=== PATIENT | female | born 1985 | race African-American/Black ===

== ENCOUNTER 2017-03-07 12:24 | Emergency (ER) | payer BC ==
[2017-03-07] MEDS ORDERED: ONDANSETRON 4 MG TAB.RAPDIS PO ONE (13:58)
[2017-03-07] MEDS ORDERED: ACETAMINOPHEN 325 MG TABLET PO ONE (13:58)
--- NOTE | 2017-03-07 14:00 | ER Document Report ---
ED Medical Screen (RME) - General Chief Complaint: Nausea/Vomiting/Diarrhea Stated Complaint: NAUSEA Time Seen by Provider: 03/07/17 13:57 Mode of Arrival: Ambulatory Information source: Patient Notes: 31-year-old female presents to ED for complaint of nausea vomiting diarrhea and abdominal pain. She states she last Friday she had nausea yesterday she started with vomiting and diarrhea and today she started with a migraine. She denies any fever. She denies any vaginal discharge or frequency urgency with urine. Last menstrual period was March 03. She states she has a history of asthma allergies migraines and sickle cell anemia. States her usual sickle cell pain is in her legs and joints. She states she has a history of a C- section and denies smoking drinking or any drugs. Abdomen soft tender in the upper abdomen bowel sounds active and present. I have greeted and performed a rapid initial assessment of this patient. A comprehensive ED assessment and evaluation of the patient, analysis of test results and completion of medical decision making process will be conducted by an additional ED providers. TRAVEL OUTSIDE OF THE [place] IN LAST 30 DAYS: No - Related Data Allergies/Adverse Reactions: codeine [Codeine] Allergy (Severe, Verified 03/07/17 13:06) Milk Containing Products [Milk Products] Allergy (Severe, Verified 03/07/17 13: 06) latex [Latex] Adverse Reaction (Severe, Verified 03/07/17 13:06) Past Medical History - Social History Chew tobacco use (# tins/day): No Frequency of alcohol use: None Drug Abuse: None - Past Medical History Cardiac Medical History: Reports: Hx Hypertension - DURING Denies: Hx Congestive Heart Failure, Hx Heart Attack, Hx Pulmonary Embolism, Hx Heart Murmur Pulmonary Medical History: Reports: Hx Asthma, Hx Bronchitis, Hx Pneumonia Denies: Hx COPD, Hx Sleep Apnea, Hx Tuberculosis Neurological Medical History: Denies: Hx Cerebrovascular Accident, Hx Seizures Renal/ Medical History: Reports: Hx Ovarian Cysts. Denies: Hx Kidney Stones, Hx Peritoneal Dialysis, Hx Pelvic Inflammatory Disease Malignancy Medical History: Denies: Hx Breast Cancer, Hx Ovarian Cancer GI Medical History: Reports: Hx Gastroesophageal Reflux Disease. Denies: Hx Hiatal Hernia. Comment Only: Hx Ulcer - UNKNOWN Musculoskeltal Medical History: Denies Hx Fibromyalgia Traumatic Medical History: Denies: Hx Fractures Infectious Medical History: Denies: Hx HIV Past Surgical History: Reports: Hx Section - x4 - Immunizations Immunizations up to date: Yes Hx Diphtheria, Pertussis, Tetanus Vaccination: Yes - 07/2012 History of Influenza Vaccine for 02/2017 - 07/2017 Season: No Physical Exam - Vital signs Vitals: Temp Pulse Resp BP Pulse Ox 98.8 F 91 18 116/67 100 03/07/17 13:09 03/07/17 13:09 03/07/17 13:09 03/07/17 13:09 03/07/17 13:09 Course - Vital Signs Vital signs: Temp Pulse Resp BP Pulse Ox 98.8 F 91 18 116/67 100 03/07/17 13:09 03/07/17 13:09 03/07/17 13:09 03/07/17 13:09 03/07/17 13:09
[2017-03-07 14:31] LABS: ABSOLUTE EOSINOPHILS # (AUTO) 0.1 10^3/uL (0.0-0.6); ABSOLUTE LYMPHOCYTES (AUTO) 2.1 10^3/uL (0.5-4.7); ABSOLUTE MONOCYTES (AUTO) 0.4 10^3/uL (0.1-1.4); ABSOLUTE NEUT (AUTO) 2.4 10^3/uL (1.7-8.2); BASOPHILS % (AUTO) 0.4 % (0-2); EOSINOPHILS % (AUTO) 1.5 % (0-6); HEMATOCRIT 34.7 % (36.0-47.0); HEMOGLOBIN 11.5 g/dL (12.0-15.5); HGB HCT DIFFERENCE -0.2; LYMPHOCYTES % (AUTO) 41.2 % (13-45); MEAN CORPUSCULAR HEMOGLOBIN 27.6 pg (27.0-33.4); MEAN CORPUSCULAR HGB CONC 33.1 g/dL (32.0-36.0); MEAN CORPUSCULAR VOLUME 83 fl (80-97); MONOCYTES % (AUTO) 8.8 % (3-13); RED BLOOD COUNT 4.17 10^6/uL (3.72-5.28); RED CELL DISTRIBUTION WIDTH 15.4 % (11.5-14.0); SEGMENTED NEUTROPHILS % (AUTO) 48.1 % (42-78)
[2017-03-07 14:34] LABS: APPEARANCE,URINE SLIGHTLY-CLOUDY; BILIRUBIN,URINE NEGATIVE (NEGATIVE); GLUCOSE, URINE NEGATIVE (NEGATIVE); KETONES,URINE NEGATIVE (NEGATIVE); LEUKOCYTE ESTERASE,URINE NEGATIVE (NEGATIVE); NITRITE,URINE NEGATIVE (NEGATIVE); PROTEIN,URINE NEGATIVE (NEGATIVE); URINE SPECIFIC GRAVITY 1.024; UROBILINOGEN,URINE NEGATIVE mg/dL (<2.0)
[2017-03-07 14:41] LABS: ALANINE AMINOTRANSFERASE 30 U/L (9-52); ALBUMIN 4.4 g/dL (3.5-5.0); ALKALINE PHOSPHATASE 66 U/L (38-126); ANION GAP 14 (5-19); ASPARTATE AMINO TRANSFERASE 20 U/L (14-36); BILIRUBIN,DIRECT 0.3 mg/dL (0.0-0.4); BILIRUBIN,TOTAL 0.5 mg/dL (0.2-1.3); BLOOD UREA NITROGEN 8 mg/dL (7-20); CALCIUM 9.6 mg/dL (8.4-10.2); CARBON DIOXIDE 24 mmol/L (22-30); CHLORIDE 105 mmol/L (98-107); CREATININE RESULT 0.54 mg/dL (0.52-1.25); GLUCOSE 91 mg/dL (75-110); LIPASE 78.2 U/L (23-300); POTASSIUM 3.9 mmol/L (3.6-5.0); TOTAL PROTEIN 7.8 g/dL (6.3-8.2)
--- NOTE | 2017-03-07 15:03 | RADIOLOGY REPORT (SQ) ---
EXAM DESCRIPTION: U/S ABDOMEN LIMITED W/O DOP COMPLETED DATE/TIME: 03/07/2017 2:42 pm REASON FOR STUDY: upper abdominal pain. COMPARISON: Abdominal ultrasound 05/05/2009 KUB 12/22/2009 TECHNIQUE: Dynamic and static grayscale images acquired of the abdomen and recorded on PACS. Additio nal selected color Doppler and spectral images recorded. LIMITATIONS: Upper abdominal bowel gas FINDINGS: PANCREAS: Midline pancreas unremarkable LIVER: No masses. Echotexture normal. LIVER VASCULATURE: Normal directional flow of the main portal vein and hepatic veins. GALLBLADDER: No stones. Normal wall thickness. No pericholecystic fluid. ULTRASOUND-DETECTED MALDONADO'S SIGN: Negative. INTRAHEPATIC DUCTS AND COMMON DUCT: CBD and intrahepatic ducts normal caliber. No filling defects. D istal most common duct not well seen due to duodenum gas INFERIOR VENA CAVA: Normal flow. AORTA: No aneurysm. RIGHT KIDNEY: Normal size. Normal echogenicity. No solid or suspicious masses. No hydronephrosis. No calcifications. PERITONEAL AND RIGHT PLEURAL SPACE: No ascites or effusions. OTHER: No other significant findings. IMPRESSION: NORMAL RIGHT UPPER QUADRANT ULTRASOUND. TECHNICAL DOCUMENTATION: JOB ID: [id number] [employer]- All Rights Reserved
[2017-03-07 17:38] VITALS: BP 128/75
--- NOTE | 2017-03-07 17:44 | ER Document Report ---
ED GI/ - General Chief Complaint: Nausea/Vomiting/Diarrhea Stated Complaint: NAUSEA Time Seen by Provider: 03/07/17 13:57 Mode of Arrival: Ambulatory TRAVEL OUTSIDE OF THE [place] IN LAST 30 DAYS: No - HPI Patient complains to provider of: Abdominal pain, Diarrhea, Vomiting Onset: Yesterday Timing/Duration: Gradual Quality of pain: Achy Severity at maximum: Mild Severity in ED: Mild Location: Epigastric Associated symptoms: Nausea, Vomiting Exacerbated by: Food Relieved by: Denies Notes: 03/07/17 22:56 Patient is a 31-year-old female presenting to the emergency room complaining of nausea vomiting and diarrhea with epigastric cramping that started yesterday, she reports mild nausea sometime last week at the start of her menstrual cycle, she denies any urinary symptoms, no sick contacts although [place] in [place] [employer] [place] she received Zofran and Tylenol in the triage area and reports feeling much better - Related Data Allergies/Adverse Reactions: codeine [Codeine] Allergy (Severe, Verified 03/07/17 13:06) Milk Containing Products [Milk Products] Allergy (Severe, Verified 03/07/17 13: 06) latex [Latex] Adverse Reaction (Severe, Verified 03/07/17 13:06) Past Medical History - General Information source: Patient - Social History Smoking Status: Never Smoker Chew tobacco use (# tins/day): No Frequency of alcohol use: None Drug Abuse: None Family History: Reviewed & Not Pertinent Patient has suicidal ideation: No Patient has homicidal ideation: No - Past Medical History Cardiac Medical History: Reports: Hx Hypertension - DURING Denies: Hx Congestive Heart Failure, Hx Heart Attack, Hx Pulmonary Embolism, Hx Heart Murmur Pulmonary Medical History: Reports: Hx Asthma, Hx Bronchitis, Hx Pneumonia Denies: Hx COPD, Hx Sleep Apnea, Hx Tuberculosis Neurological Medical History: Denies: Hx Cerebrovascular Accident, Hx Seizures Renal/ Medical History: Reports: Hx Ovarian Cysts. Denies: Hx Kidney Stones, Hx Peritoneal Dialysis, Hx Pelvic Inflammatory Disease Malignancy Medical History: Denies: Hx Breast Cancer, Hx Ovarian Cancer GI Medical History: Reports: Hx Gastroesophageal Reflux Disease. Denies: Hx Hiatal Hernia. Comment Only: Hx Ulcer - UNKNOWN Musculoskeltal Medical History: Denies Hx Fibromyalgia Traumatic Medical History: Denies: Hx Fractures Infectious Medical History: Denies: Hx HIV Past Surgical History: Reports: Hx Section - x4 - Immunizations Immunizations up to date: Yes Hx Diphtheria, Pertussis, Tetanus Vaccination: Yes - 07/2012 Review of Systems - Review of Systems Constitutional: No symptoms reported EENT: No symptoms reported Cardiovascular: No symptoms reported Respiratory: No symptoms reported Gastrointestinal: See HPI Genitourinary: No symptoms reported Female Genitourinary: No symptoms reported Musculoskeletal: No symptoms reported Skin: No symptoms reported Hematologic/Lymphatic: No symptoms reported Neurological/Psychological: No symptoms reported -: Yes All other systems reviewed and negative Physical Exam - Vital signs Vitals: Temp Pulse Resp BP Pulse Ox 98.8 F 91 18 116/67 100 03/07/17 13:09 03/07/17 13:09 03/07/17 13:09 03/07/17 13:09 03/07/17 13:09 Interpretation: Normal - General General appearance: Appears well, Alert - HEENT Head: Normocephalic, Atraumatic Eyes: Normal Pupils: PERRL - Respiratory Respiratory status: No respiratory distress Chest status: Nontender Breath sounds: Normal Chest palpation: Normal - Cardiovascular Rhythm: Regular Heart sounds: Normal auscultation Murmur: No - Abdominal Inspection: Normal, Obese Distension: No distension Bowel sounds: Normal Tenderness: Nontender Organomegaly: No organomegaly - Back Back: Normal, Nontender - Extremities General upper extremity: Normal inspection, Nontender, Normal color, Normal ROM , Normal temperature General lower extremity: Normal inspection, Nontender, Normal color, Normal ROM , Normal temperature, Normal weight bearing. No: Eleazar's sign - Neurological Neuro grossly intact: Yes Cognition: Normal Orientation: AAOx4 [place] Coma Scale Eye Opening: Spontaneous [place] Coma Scale Verbal: Oriented Hemant Coma Scale Motor: Obeys Commands Hemant Coma Scale Total: 15 Speech: Normal Motor strength normal: LUE, RUE, LLE, RLE Sensory: Normal - Psychological Associated symptoms: Normal affect, Normal mood - Skin Skin Temperature: Warm Skin Moisture: Dry Skin Color: Normal Course - Re-evaluation Re-evalutation: 03/07/17 22:58 Patient reports feeling much better at time of my initial evaluation, lab and imaging findings were discussed with her at bedside which are unremarkable, symptoms consistent with viral illness, she was able to tolerate p.o. intake in the department and was discharged with instructions for follow-up, advised to return if any additional concerns, patient acknowledges understanding and agreement with this plan - Vital Signs Vital signs: Temp Pulse Resp BP Pulse Ox 98.0 F 75 20 128/75 H 99 03/07/17 17:34 03/07/17 17:34 03/07/17 17:34 03/07/17 17:34 03/07/17 17:34 - Laboratory Result Diagrams: 03/07/17 14:13 03/07/17 14:13 Laboratory results interpreted by me: 03/07/17 03/07/17 14:13 14:13 Hgb 11.5 L Hct 34.7 L RDW 15.4 H Urine Blood LARGE H Discharge - Discharge Clinical Impression: Nausea vomiting and diarrhea Condition: Stable Disposition: HOME, SELF-CARE Instructions: Antinausea Medication ([facility]), Diarrhea, Nonspecific ([facility]), Viral Syndrome ([facility]), Vomiting ([facility]) Additional Instructions: Follow up with your primary care provider in one to 2 days. Return to the emergency room immediately if symptoms worsen or any additional concerns. Prescriptions: Ondansetron [Zofran Odt 4 mg Tablet] 1 - 2 tab PO Q4H #14 tab.rapdis Forms: Return to Work
== END 2017-03-07 18:04 | disposition home or self-care (01) ==
LOC: ER 12:24
DX: R11.2 Nausea with vomiting, unspecified (principal); R19.7 Diarrhea, unspecified; R10.9 Unspecified abdominal pain; E66.9 Obesity, unspecified; Z88.6 Allergy status to analgesic agent; Z91.040 Latex allergy status; Z91.011 Allergy to milk products
CPT/HCPCS: 99284; 36415; 83690; 84703; 85025; 80053; 81001; 76705; S0119

== ENCOUNTER 2017-05-25 18:44 | Emergency (ER) | payer BC ==
[2017-05-25] MEDS ORDERED: NORMAL SALINE 1000 ML 1,000 ML IV ONE (20:06)
[2017-05-25] MEDS ORDERED: DEXAMETHASONE SOD PHOS INJ 10 MG/1 ML VIAL IV ONE (20:06)
[2017-05-25] MEDS ORDERED: MORPHINE SULFATE 10 MG/ML INJ IV ONE (20:06)
[2017-05-25] MEDS ORDERED: CLINDAMYCIN 600 MG/D5W RTU 600 MG/50 ML RTUPB IV ONE (20:06)
[2017-05-25] MEDS ORDERED: KETOROLAC TROMETHAMINE INJ/PF 30 MG/1 ML SDV IV ONE (20:07)
--- NOTE | 2017-05-25 20:08 | ER Document Report ---
ED ENT - General Chief Complaint: Sore Throat Stated Complaint: SORE THROAT Time Seen by Provider: 05/25/17 19:53 Mode of Arrival: Ambulatory Information source: Patient Notes: Patient presents complaining of sore throat symptoms for the past 3 days. Patient denies any fever at home. Patient complains of difficulty swallowing at home. Patient states she has difficulty breathing if she lies supine. Patient is sitting upright for comfort. TRAVEL OUTSIDE OF THE [place] IN LAST 30 DAYS: No - HPI Patient complains to provider of: Throat problem Onset: Other - 3 days Onset/Duration: Worse Pain Level: 4 Location of pain: Throat Associated symptoms: Cough, Difficulty swallowing, Sore throat. denies: Fever Similar symptoms previously: No Recently seen / treated by doctor: No - Related Data Allergies/Adverse Reactions: codeine [Codeine] Allergy (Severe, Verified 05/25/17 18:45) Milk Containing Products [Milk Products] Allergy (Severe, Verified 05/25/17 18: 45) latex [Latex] Adverse Reaction (Severe, Verified 05/25/17 18:45) Past Medical History - General Information source: Patient - Social History Smoking Status: Never Smoker Frequency of alcohol use: None Drug Abuse: None Occupation: food beverage manager Family History: Reviewed & Not Pertinent - Medical History Medical History: Other - sickle cell disease - Past Medical History Cardiac Medical History: Reports: Hx Hypertension - DURING Denies: Hx Congestive Heart Failure, Hx Heart Attack, Hx Pulmonary Embolism, Hx Heart Murmur Pulmonary Medical History: Reports: Hx Asthma, Hx Bronchitis, Hx Pneumonia Denies: Hx COPD, Hx Sleep Apnea, Hx Tuberculosis Neurological Medical History: Denies: Hx Cerebrovascular Accident, Hx Seizures Renal/ Medical History: Reports: Hx Ovarian Cysts. Denies: Hx Kidney Stones, Hx Peritoneal Dialysis, Hx Pelvic Inflammatory Disease Malignancy Medical History: Denies: Hx Breast Cancer, Hx Ovarian Cancer GI Medical History: Reports: Hx Gastroesophageal Reflux Disease. Denies: Hx Hiatal Hernia. Comment Only: Hx Ulcer - UNKNOWN Musculoskeltal Medical History: Denies Hx Fibromyalgia Traumatic Medical History: Denies: Hx Fractures Infectious Medical History: Denies: Hx HIV Past Surgical History: Reports: Hx Section - x4 - Immunizations Immunizations up to date: Yes Hx Diphtheria, Pertussis, Tetanus Vaccination: Yes - 07/2012 Review of Systems - Review of Systems Constitutional: No symptoms reported. denies: Fever EENT: Throat pain, Difficulty swallowing, Throat swelling Cardiovascular: No symptoms reported Respiratory: Cough. denies: Short of breath Gastrointestinal: No symptoms reported. denies: Vomiting Genitourinary: No symptoms reported Female Genitourinary: No symptoms reported Musculoskeletal: No symptoms reported Skin: No symptoms reported Hematologic/Lymphatic: No symptoms reported Neurological/Psychological: No symptoms reported Physical Exam - Vital signs Vitals: Temp Pulse Resp BP Pulse Ox 99.8 F 110 H 20 140/65 H 100 05/25/17 19:08 05/25/17 19:08 05/25/17 19:08 05/25/17 19:08 05/25/17 19:08 - General General appearance: Alert In distress: Mild - HEENT Head: Normocephalic Eyes: Normal Ears: Normal External canal: Normal Nasal: Normal Mouth/Lips: Normal Mucous membranes: Normal Pharynx: Erythema, Peritonsillar abscess - right, Tonsillar hypertrophy Neck: Lymphadenopathy - Respiratory Respiratory status: No respiratory distress Chest status: Nontender Breath sounds: Nonproductive cough Chest palpation: Normal - Cardiovascular Rhythm: Tachycardia Heart sounds: S1 appreciated, S2 appreciated Murmur: No - Back Back: Normal, Nontender - Extremities General upper extremity: Normal inspection, Normal ROM General lower extremity: Normal inspection, Normal ROM - Neurological Neuro grossly intact: Yes Cognition: Normal Hemant Coma Scale Eye Opening: Spontaneous Hemant Coma Scale Verbal: Oriented Hemant Coma Scale Motor: Obeys Commands [place] Coma Scale Total: 15 - Psychological Associated symptoms: Normal affect, Normal mood - Skin Skin Temperature: Warm Skin Moisture: Dry Skin Color: Normal Course - Re-evaluation Re-evalutation: 05/25/17 21:04 Dr. Yip to bedside for examination. Recommend CT scan of neck as well as giving 60 mEq of potassium p.o. 05/25/17 22:55 CT report reviewed, consultation placed with transfer center 05/25/17 23:[address] Taylor, who is on-call for ENT at [facility]. Recommends transfer to hospitalist services with ENT consultation. 05/25/17 23:[address] Park at [facility] who does agree to accept patient as a transfer. 05/26/17 23:45 Patient updated regarding plan of care and is agreeable to transfer. Patient awaiting available bed 05/26/17 01:26 Patient resting on stretcher sitting upright. Ice chips provided to patient. Patient denies any pain at this time. Respirations unlabored. No trismus on exam. Patient continues with right peritonsillar swelling and inflammation. Report and handout given to [facility]. - Vital Signs Vital signs: Temp Pulse Resp BP Pulse Ox 98.6 F 104 H 20 136/85 H 99 05/25/17 23:01 05/25/17 23:10 05/25/17 19:08 05/25/17 23:01 05/25/17 23:01 - Laboratory Result Diagrams: 05/25/17 20:23 05/25/17 20:23 Laboratory results interpreted by me: 05/25/17 05/25/17 20:23 20:23 WBC 11.6 H Hgb 11.4 L Hct 34.4 L RDW 14.4 H Absolute Neutrophils 8.5 H Potassium 2.8 L* Carbon Dioxide 31 H BUN 6 L Labs- Entire Visit 05/25/17 05/25/17 05/25/17 20:23 20:23 20:23 WBC 11.6 H RBC 4.15 Hgb 11.4 L Hct 34.4 L MCV 83 MCH 27.6 MCHC 33.2 RDW 14.4 H Plt Count 244 Seg Neutrophils % 73.6 Lymphocytes % 15.9 Monocytes % 9.2 Eosinophils % 1.0 Basophils % 0.3 Absolute Neutrophils 8.5 H Absolute Lymphocytes 1.8 Absolute Monocytes 1.1 Absolute Eosinophils 0.1 Absolute Basophils 0.0 Sodium 143.1 Potassium 2.8 L* Chloride 99 Carbon Dioxide 31 H Anion Gap 13 BUN 6 L Creatinine 0.53 Est GFR ( Amer) > 60 Est GFR (Non-Af Amer) > 60 Glucose 105 Calcium 10.0 Magnesium Total Bilirubin 0.6 Direct Bilirubin 0.3 Neonat Total Bilirubin Not Reportable Neonat Direct Bilirubin Not Reportable Neonat Indirect Bili Not Reportable AST 14 ALT 24 Alkaline Phosphatase 84 Total Protein 8.0 Albumin 4.2 Monotest Group A Strep Rapid NEGATIVE 05/25/17 05/25/17 20:23 21:05 WBC RBC Hgb Hct MCV MCH MCHC RDW Plt Count Seg Neutrophils % Lymphocytes % Monocytes % Eosinophils % Basophils % Absolute Neutrophils Absolute Lymphocytes Absolute Monocytes Absolute Eosinophils Absolute Basophils Sodium Potassium Chloride Carbon Dioxide Anion Gap BUN Creatinine Est GFR ( Amer) Est GFR (Non-Af Amer) Glucose Calcium Magnesium 1.8 Total Bilirubin Direct Bilirubin Neonat Total Bilirubin Neonat Direct Bilirubin Neonat Indirect Bili AST ALT Alkaline Phosphatase Total Protein Albumin Monotest NEGATIVE Group A Strep Rapid - Diagnostic Test Radiology reviewed: Reports reviewed Discharge - Discharge Clinical Impression: Peritonsillar abscess, Hypokalemia, Sore throat Condition: Stable Disposition: [facility]
[2017-05-25 20:37] LABS: ABSOLUTE EOSINOPHILS # (AUTO) 0.1 10^3/uL (0.0-0.6); ABSOLUTE LYMPHOCYTES (AUTO) 1.8 10^3/uL (0.5-4.7); ABSOLUTE MONOCYTES (AUTO) 1.1 10^3/uL (0.1-1.4); ABSOLUTE NEUT (AUTO) 8.5 10^3/uL (1.7-8.2); BASOPHILS % (AUTO) 0.3 % (0-2); HEMATOCRIT 34.4 % (36.0-47.0); HEMOGLOBIN 11.4 g/dL (12.0-15.5); LYMPHOCYTES % (AUTO) 15.9 % (13-45); MEAN CORPUSCULAR HEMOGLOBIN 27.6 pg (27.0-33.4); MEAN CORPUSCULAR HGB CONC 33.2 g/dL (32.0-36.0); MEAN CORPUSCULAR VOLUME 83 fl (80-97); MONOCYTES % (AUTO) 9.2 % (3-13); PLATELET COUNT 244 10^3/uL (150-450); RED BLOOD COUNT 4.15 10^6/uL (3.72-5.28); RED CELL DISTRIBUTION WIDTH 14.4 % (11.5-14.0); SEGMENTED NEUTROPHILS % (AUTO) 73.6 % (42-78); TOTAL CELLS COUNTED % (AUTO) 100 %; WHITE BLOOD COUNT 11.6 10^3/uL (4.0-10.5)
[2017-05-25 20:54] LABS: ALANINE AMINOTRANSFERASE 24 U/L (9-52); ALBUMIN 4.2 g/dL (3.5-5.0); ALKALINE PHOSPHATASE 84 U/L (38-126); ANION GAP 13 (5-19); ASPARTATE AMINO TRANSFERASE 14 U/L (14-36); BILIRUBIN,DIRECT 0.3 mg/dL (0.0-0.4); BILIRUBIN,TOTAL 0.6 mg/dL (0.2-1.3); BLOOD UREA NITROGEN 6 mg/dL (7-20); CARBON DIOXIDE 31 mmol/L (22-30); CHLORIDE 99 mmol/L (98-107); GLUCOSE 105 mg/dL (75-110); SODIUM 143.1 mmol/L (137-145)
[2017-05-25 20:57] LABS: POTASSIUM 2.8 mmol/L (3.6-5.0)
[2017-05-25] MEDS ORDERED: POTASSIUM CHLORIDE 20 MEQ/15 ML UDCUP PO ONE (21:04)
[2017-05-25 21:12] LABS: MAGNESIUM 1.8 mg/dL (1.6-2.3)
--- NOTE | 2017-05-25 22:01 | RADIOLOGY REPORT (SQ) ---
EXAM DESCRIPTION: CT SOFT TISSUE NECK WITH COMPLETED DATE/TIME: 05/25/2017 9:49 pm REASON FOR STUDY: sore throat, [employer] ARCHITECT COMPARISON: None. TECHNIQUE: Post IV contrasted scanning from skull base through lung apices with review of bone, soft tissue and lung windows. Reconstructed coronal and sagittal MPR images reviewed. All images stored on PACS. All CT scanners at this facility use dose modulation, iterative reconstruction, and/or weight based d osing when appropriate to reduce radiation dose to as low as reasonably achievable (ALARA). [facility]: Dose Right [facility]: CareDose [facility]: Dose Right [facility]: Teradose 4D [facility]: Mixers CONTRAST TYPE AND DOSE: contrast/concentration: Isovue 370.00 mg/ml; Total Contrast Delivered: 75.0 ml; Total Saline Delivered: 55.0 ml RENAL FUNCTION: None required. The patient is less than 50 years old. RADIATION DOSE: CT Rad equipment meets quality standard of care and radiation dose reduction techniq ues were employed. CTDIvol: 16.6 mGy. DLP: 473 mGy-cm. . LIMITATIONS: None. FINDINGS: SKULL BASE: Intact. MAJOR SALIVARY GLANDS: No solid or cystic masses. No inflammatory changes. LYMPHADENOPATHY: There is diffuse enlargement of the adenoidal and tonsillar tissues with impingement on the pharyngeal air column. There are 2 somewhat ill-defined relative low density areas in the to nsillar tissue on the right suggesting peritonsillar abscess collections. MUCOSAL MASSES OR ASYMMETRY: No mucosal masses or asymmetry. LARYNX/CORDS: No abnormal findings. VASCULAR STRUCTURES: The major vessels are patent. LUNG APICES: Clear. BONES: Intact. THYROID: Normal size. No masses. PARANASAL SINUSES: Clear. OTHER: No other significant finding. IMPRESSION: There is diffuse enlargement of the adenoidal and tonsillar tissues with impingement on the pharyngeal air column. There are 2 somewhat ill-defined relative low density areas in the tonsil lar tissue on the right suggesting peritonsillar abscess collections. Clinical correlation is recomm ended. Other findings as noted above TECHNICAL DOCUMENTATION: JOB ID: [id number] Quality ID # [id number]: Final reports with documentation of one or more dose reduction techniques (e.g., Au tomated exposure control, adjustment of the mA and/or kV according to patient size, use of iterative reconstruction technique) 2010 [employer]- All Rights Reserved
[2017-05-25] MEDS ORDERED: NORMAL SALINE 1000 ML 1,000 ML IV PRN (23:04)
[2017-05-26] MEDS ORDERED: MORPHINE SULFATE 10 MG/ML INJ IV ONE (02:12)
[2017-05-26 02:43] VITALS: BP 120/72
[2017-05-26] MEDS ORDERED: CLINDAMYCIN 600 MG/D5W RTU 600 MG/50 ML RTUPB IV SCH (03:30)
[2017-05-26] MEDS ORDERED: DEXAMETHASONE SOD PHOS INJ 10 MG/1 ML VIAL IV ONE (05:30)
== END 2017-05-26 03:00 | disposition short-term general hospital (02) ==
LOC: ER 18:44
DX: J36 Peritonsillar abscess (principal); E87.6 Hypokalemia; J02.9 Acute pharyngitis, unspecified; R13.10 Dysphagia, unspecified; R06.02 Shortness of breath
CPT/HCPCS: 96376; 99285; 96361; 96375; 96365; 36415; 87040; 87070; 87880; 83735; 85025; 87077; 86308; 80053; 70491; J1885; J2270 ×2; J7030 ×2; J1100

== ENCOUNTER 2017-07-12 19:59 | Emergency (ER) | payer BC ==
--- NOTE | 2017-07-12 21:58 | RADIOLOGY REPORT (SQ) ---
EXAM DESCRIPTION: SOFT TISSUE NECK COMPLETED DATE/TIME: 07/12/2017 9:46 pm REASON FOR STUDY: fishbone in throat COMPARISON: CT from 05/25/2017. NUMBER OF VIEWS: Two views. TECHNIQUE: AP and lateral radiographic image of the soft tissues of the neck. LIMITATIONS: None. FINDINGS: EPIGLOTTIS: Normal. Contour normal. Aryepiglottic folds normal. PREVERTEBRAL SOFT TISSUES: Normal. No soft tissue swelling. SUBGLOTTIC AREA: Normal. No narrowing. RETROPHARYNGEAL SPACE: Normal. No soft tissue masses. BONES: No significant findings. LUNG APICES: Normal. OTHER: Calcifications associated with the laryngeal apparatus are felt to be physiologic. No radiopa que foreign body detected. IMPRESSION: NEGATIVE STUDY OF THE SOFT TISSUES OF THE NECK. TECHNICAL DOCUMENTATION: JOB ID: [id number] [employer]- All Rights Reserved
--- NOTE | 2017-07-12 22:05 | ER Document Report ---
ED Medical Screen (RME) - General Chief Complaint: Swallowed Foreign Body Stated Complaint: FOREIGN OBJECT STUCK IN NECK Time Seen by Provider: 07/12/17 21:51 Mode of Arrival: Ambulatory Information source: Patient Notes: 31-year-old female presents to ED for complaint of bone in her throat. She states she ate salmon yesterday and she can feel the bone moving when she tries to swallow water or bread. She did recently have tonsillectomy and has scar tissue in her throat. The soft tissue neck x-ray was negative. I spoke with Dr. turner who stated we should do a CT scan to ensure there is no bone there she could still feel a scratch from when she did eat the bone. Patient is able to drink water. Patient is speaking in full sentences. I have greeted and performed a rapid initial assessment of this patient. A comprehensive ED assessment and evaluation of the patient, analysis of test results and completion of medical decision making process will be conducted by an additional ED providers. TRAVEL OUTSIDE OF THE [place] IN LAST 30 DAYS: No - Related Data Allergies/Adverse Reactions: codeine [Codeine] Allergy (Severe, Verified 05/25/17 18:45) Milk Containing Products [Milk Products] Allergy (Severe, Verified 05/25/17 18: 45) latex [Latex] Adverse Reaction (Severe, Verified 05/25/17 18:45) Past Medical History - Past Medical History Cardiac Medical History: Reports: Hx Hypertension - DURING Denies: Hx Congestive Heart Failure, Hx Heart Attack, Hx Pulmonary Embolism, Hx Heart Murmur Pulmonary Medical History: Reports: Hx Asthma, Hx Bronchitis, Hx Pneumonia Denies: Hx COPD, Hx Sleep Apnea, Hx Tuberculosis Neurological Medical History: Denies: Hx Cerebrovascular Accident, Hx Seizures Renal/ Medical History: Reports: Hx Ovarian Cysts. Denies: Hx Kidney Stones, Hx Peritoneal Dialysis, Hx Pelvic Inflammatory Disease Malignancy Medical History: Denies: Hx Breast Cancer, Hx Ovarian Cancer GI Medical History: Reports: Hx Gastroesophageal Reflux Disease. Denies: Hx Hiatal Hernia. Comment Only: Hx Ulcer - UNKNOWN Musculoskeltal Medical History: Denies Hx Fibromyalgia Traumatic Medical History: Denies: Hx Fractures Infectious Medical History: Denies: Hx HIV Past Surgical History: Reports: Hx Section - x4 - Immunizations Immunizations up to date: Yes Hx Diphtheria, Pertussis, Tetanus Vaccination: Yes - 07/2012 History of Influenza Vaccine for 02/2017 - 07/2017 Season: No Physical Exam - Vital signs Vitals: Temp Pulse Resp BP Pulse Ox 99.4 F 91 18 121/77 99 07/12/17 20:21 07/12/17 20:21 07/12/17 20:21 07/12/17 20:21 07/12/17 20:21 Course - Vital Signs Vital signs: Temp Pulse Resp BP Pulse Ox 99.4 F 91 18 121/77 99 07/12/17 20:21 07/12/17 20:21 07/12/17 20:21 07/12/17 20:21 07/12/17 20:21
--- NOTE | 2017-07-12 22:35 | RADIOLOGY REPORT (SQ) ---
EXAM DESCRIPTION: CT SOFT TISSUE NECK WITHOUT COMPLETED DATE/TIME: 07/12/2017 10:22 pm REASON FOR STUDY: states feel bone in throat COMPARISON: None. TECHNIQUE: Noncontrast scanning from skull base through lung apices with review of bone, soft tissue and lung windows. Reconstructed coronal and sagittal MPR images reviewed. All images stored on PAC S. All CT scanners at this facility use dose modulation, iterative reconstruction, and/or weight based d osing when appropriate to reduce radiation dose to as low as reasonably achievable (ALARA). [facility]: Dose Right [facility]: CareDose [facility]: Dose Right [facility]: Teradose 4D [facility]: Smart [employer] RADIATION DOSE: CT Rad equipment meets quality standard of care and radiation dose reduction techniq ues were employed. CTDIvol: 14.1 mGy. DLP: 418 mGy-cm. mGy. LIMITATIONS: None. FINDINGS: SKULL BASE: Intact. MAJOR SALIVARY GLANDS: No solid or cystic masses. No inflammatory changes. LYMPHADENOPATHY: No adenopathy. MUCOSAL MASSES OR ASYMMETRY: No mucosal masses or asymmetry. LARYNX/CORDS: No abnormal findings. LUNG APICES: Clear. BONES: Intact. THYROID: Normal size. No masses. PARANASAL SINUSES: Clear. OTHER: No foreign body in the airway or esophagus. IMPRESSION: NO SIGNIFICANT FINDING IN THE SOFT TISSUES OF THE NECK. TECHNICAL DOCUMENTATION: JOB ID: [id number] Quality ID # [id number]: Final reports with documentation of one or more dose reduction techniques (e.g., Au tomated exposure control, adjustment of the mA and/or kV according to patient size, use of iterative reconstruction technique) 2010 [employer]- All Rights Reserved
[2017-07-12] MEDS ORDERED: LIDOCAINE 2% VISCOUS SOLN 20 ML UDCUP PO ONE (23:01)
--- NOTE | 2017-07-12 23:07 | ER Document Report ---
ED Foreign Body - General Chief Complaint: Swallowed Foreign Body Stated Complaint: FOREIGN OBJECT STUCK IN NECK Time Seen by Provider: 07/12/17 21:51 Mode of Arrival: Ambulatory Notes: 31-year-old female presented to ED for complaint of fishbone in her throat. She states she ate some salmon yesterday and she still can feel the bone moving in her throat. A soft tissue neck x-ray was done with no evidence of a bone. And a CT soft tissue neck without contrast was done and still no bone was present. Patient is able to take fluids well she states she is also able to eat potatoes but she feels like something is moving in her throat when she eats potatoes or bread. She had a tonsillectomy on July 04, 2017. TRAVEL OUTSIDE OF THE [place] IN LAST 30 DAYS: No - HPI Location of foreign body: Other - Swallowed feels pain in her throat just behind her tongue Onset: Yesterday Onset/Duration: Intermittent Quality of pain: Sharp Severity: Mild Pain Level: 1 Context: Other - Swallowed states that might have had a bone and it Associated symptoms: Other - Pain with swallowing Exacerbated by: Food Relieved by: Denies Similar symptoms previously: No Recently seen / treated by doctor: Yes - Related Data Allergies/Adverse Reactions: codeine [Codeine] Allergy (Severe, Verified 05/25/17 18:45) Milk Containing Products [Milk Products] Allergy (Severe, Verified 05/25/17 18: 45) latex [Latex] Adverse Reaction (Severe, Verified 05/25/17 18:45) Past Medical History - General Information source: Patient - Social History Smoking Status: Never Smoker Cigarette use (# per day): No Chew tobacco use (# tins/day): No Smoking Education Provided: No Frequency of alcohol use: None Drug Abuse: None Lives with: Family Family History: Reviewed & Not Pertinent Patient has suicidal ideation: No Patient has homicidal ideation: No - Past Medical History Cardiac Medical History: Reports: Hx Hypertension - DURING Pulmonary Medical History: Reports: Hx Asthma, Hx Bronchitis, Hx Pneumonia EENT Medical History: Reports: None Neurological Medical History: Reports: None Endocrine Medical History: Reports: None Renal/ Medical History: Reports: Hx Ovarian Cysts Malignancy Medical History: Reports: None GI Medical History: Reports: Hx Gastroesophageal Reflux DiseaseComment Only: Hx Ulcer - UNKNOWN Musculoskeltal Medical History: Reports None Skin Medical History: Reports None Psychiatric Medical History: Reports: None Traumatic Medical History: Reports: None Infectious Medical History: Reports: None Past Surgical History: Reports: Hx Section - x4, Hx Tonsillectomy - Immunizations Immunizations up to date: Yes Hx Diphtheria, Pertussis, Tetanus Vaccination: Yes - 07/2012 Review of Systems - Review of Systems Notes: Constitutional: [PRESENT: as per HPI. ABSENT: chills, fever(s), headache(s), weight gain, weight loss] Eyes: [ABSENT: visual disturbances] Ears: [ABSENT: hearing changes] Nasopharyngeal: Patient has a scar tissue from her recent tonsillectomy. No foreign body visualized. Patient states she has a foreign body sensation in her throat just behind her tongue after eating something yesterday Cardiovascular: [ABSENT: chest pain, dyspnea on exertion, edema, orthropnea, palpitations] Respiratory: [ABSENT: cough, hemoptysis] Gastrointestinal: [ABSENT: abdominal pain, constipation, diarrhea, hematemesis, hematochezia, nausea, vomiting] Genitourinary: [ABSENT: dysuria, hematuria] Musculoskeletal: [ABSENT: joint swelling] Integumentary: [ABSENT: rash, wounds] Neurological: [ABSENT: abnormal gait, abnormal speech, confusion, dizziness, focal weakness, syncope] Psychiatric: [ABSENT: anxiety, depression, homicidal ideation, suicidal ideation ] Endocrine: [ABSENT: cold intolerance, heat intolerance, menstrual abnormalities , polydipsia, polyuria] Hematologic/Lymphatic: [ABSENT: easy bleeding, easy bruising, lymphadenopathy] Physical Exam - Vital signs Vitals: Temp Pulse Resp BP Pulse Ox 99.4 F 91 18 121/77 99 07/12/17 20:21 07/12/17 20:21 07/12/17 20:21 07/12/17 20:21 07/12/17 20:21 - Notes Notes: PHYSICAL EXAMINATION: GENERAL: Well-appearing, well-nourished and in no acute distress. HEAD: Atraumatic, normocephalic. EYES: Pupils equal round and reactive to light, extraocular movements intact, conjunctiva are normal. ENT: Nares patent, oropharynx, right eschar tissue noted bilaterally from her recent tonsillectomy. No foreign body seen. No signs or symptoms of infection noted. Moist mucous membranes. NECK: Normal range of motion, supple without lymphadenopathy LUNGS: Breath sounds clear to auscultation bilaterally and equal. No wheezes rales or rhonchi. HEART: Regular rate and rhythm without murmurs ABDOMEN: Soft, nontender, nondistended abdomen. No guarding, no rebound. No masses appreciated. Female : deferred Musculoskeletal: Normal range of motion, no pitting or edema. No cyanosis. NEUROLOGICAL: Cranial nerves grossly intact. Normal speech, normal gait. Normal sensory, motor exams PSYCH: Normal mood, normal affect. SKIN: Warm, Dry, normal turgor, no rashes or lesions noted. Course - Re-evaluation Re-evalutation: 07/13/17 06:05 Discussed x-ray and CT with patient. Written reports and CD of CT and x-ray given the patient to follow-up with her ENT. Patient was instructed to please call the ENT who did her tonsillectomy on Friday and schedule a follow-up within the next 24-48 hours if she continued to have pain in her throat. Patient was given viscous lidocaine in the emergency room. She stated took away all of the pain but it tasted terrible. Patient was given a prescription for viscous lidocaine for discomfort. She was instructed to not use more than 3 doses of the viscous lidocaine. Patient verbalized understanding of instructions. - Vital Signs Vital signs: Temp Pulse Resp BP Pulse Ox 99.4 F 99 18 106/83 97 07/12/17 20:21 07/12/17 23:25 07/12/17 23:25 07/12/17 23:25 07/12/17 23:25 - Diagnostic Test Radiology reviewed: Image reviewed, Reports reviewed Discharge - Discharge Clinical Impression: Sore throat after eating fish Condition: Stable Disposition: HOME, SELF-CARE Additional Instructions: You were seen today for possible fishbone in your throat. Your soft tissue neck x-ray and CT were both negative. I have given you a copy of the written report of your CT and x-ray as well as a CD with these on it for you to follow-up with your ENT. I have given you viscous lidocaine in the emergency room for your discomfort as well as a prescription of viscous lidocaine for you to use as needed for pain. Please do not use this more than 3 times a day. You can eat soft foods and liquids as your previous previously instructed by your ENT after your tonsillectomy. Acetaminophen Acetaminophen may be taken for pain relief or fever control. It's much safer than aspirin, offering a wider range of "safe" dosages. It is safe during . Some brand names are Tylenol, Panadol, Datril, Anacin 3, Tempra, and Liquiprin. Acetaminophen can be repeated every four hours. The following are maximum recommended dosages: WEIGHT Dose Drops Elixir Chewable( 80mg) (LBS.) drprs=droppers tsp=teaspoon 6 40 mg .4 ml (1/2) 6-11 80 mg .8 ml (full) 1/2 tsp 1 tab 12-16 120 mg 1 1/2 drprs 3/4 tsp 1 1/2 tabs 17-23 160 mg 2 drprs 1 tsp 2 tabs 24-30 240 mg 3 drprs 1 1/2 tsp 3 tabs 30-35 320 mg 2 tsp 4 tabs 36-41 360 mg 2 1/4 tsp 4 1 /2 tabs 42-47 400 mg 2 1/2 tsp 5 tabs 48-53 480 mg 3 tsp 6 tabs 54-59 520 mg 3 1/4 tsp 6 1 /2 tabs 60-64 560 mg 3 1/2 tsp 7 tabs 65-70 600 mg 3 3/4 tsp 7 1 /2 tabs 71-76 640 mg 4 tsp 8 tabs 77-82 720 mg 4 1/2 tsp 9 tabs 83-88 800 mg 5 tsp 10 tabs >89 pounds or adults 650 mg to 900 mg Acetaminophen can be repeated every four hours. Maximum daily dose not to exceed 4000 mg. These maximum recommended dosages are slightly higher than the dosages written on the product container, but these dosages are very safe and well below the toxic dosage for acetaminophen. It is very important to call your ENT on Friday to have a follow-up visit if you are continued to feel the sensation that you have a foreign body in your throat. If not please keep your ENT appointment on as scheduled. FOLLOW-UP CARE: If you have been referred to a physician for follow-up care, call the physician s office for an appointment as you were instructed or within the next two days. If you experience worsening or a significant change in your symptoms, notify the physician immediately or return to the Emergency Department at any time for re-evaluation. Prescriptions: Lidocaine HCl [Lidocaine HCl Viscous] 10 ml MM TIDP PRN #40 ml PRN Reason: For Pain
[2017-07-12 23:40] VITALS: BP 106/83
== END 2017-07-12 23:40 | disposition home or self-care (01) ==
LOC: ER 19:59
DX: R07.0 Pain in throat (principal); Z88.6 Allergy status to analgesic agent; Z91.040 Latex allergy status; Z91.011 Allergy to milk products
CPT/HCPCS: 99284; 70360; 70490; J3490

== ENCOUNTER 2019-08-01 13:43 | Emergency (ER) | payer BC ==
[2019-08-01] MEDS ORDERED: ONDANSETRON 4 MG TAB.RAPDIS PO ONE (13:50)
--- NOTE | 2019-08-01 13:51 | ER Document Report ---
ED Medical Screen (RME) - General Chief Complaint: Epigastric Pain Stated Complaint: NAUSEA/STOMACH PAIN Time Seen by Provider: 08/01/19 13:45 Mode of Arrival: Ambulatory Information source: Patient Notes: 33-year-old female presents emergency department with complaints of cough for the past 2 weeks but that is better. Reports epigastric right upper quadrant abdominal pain for the past 2 days with nausea. Denies fever diarrhea. Right upper quadrant epigastric area tender to palpate. I have greeted and performed a rapid initial assessment of this patient. A comprehensive ED assessment and evaluation of the patient, analysis of test results and completion of the medical decision making process will be conducted by additional ED providers. TRAVEL OUTSIDE OF THE [place] IN LAST 30 DAYS: No - Related Data Allergies/Adverse Reactions: codeine [Codeine] Allergy (Severe, Verified 05/25/17 18:45) Milk Containing Products [Milk Products] Allergy (Severe, Verified 05/25/17 18:45) latex [Latex] Adverse Reaction (Severe, Verified 05/25/17 18:45) Past Medical History - Social History Chew tobacco use (# tins/day): No Frequency of alcohol use: None Drug Abuse: None - Past Medical History Cardiac Medical History: Reports: Hx Hypertension - DURING Denies: Hx Congestive Heart Failure, Hx Heart Attack, Hx Pulmonary Embolism, Hx Heart Murmur Pulmonary Medical History: Reports: Hx Asthma, Hx Bronchitis, Hx Pneumonia Denies: Hx COPD, Hx Sleep Apnea, Hx Tuberculosis Neurological Medical History: Denies: Hx Cerebrovascular Accident, Hx Seizures Renal/ Medical History: Reports: Hx Ovarian Cysts. Denies: Hx Kidney Stones, Hx Peritoneal Dialysis, Hx Pelvic Inflammatory Disease Malignancy Medical History: Denies: Hx Breast Cancer, Hx Ovarian Cancer GI Medical History: Reports: Hx Gastroesophageal Reflux Disease. Denies: Hx Hiatal Hernia. Comment Only: Hx Ulcer - UNKNOWN Musculoskeltal Medical History: Denies Hx Fibromyalgia Traumatic Medical History: Denies: Hx Fractures Infectious Medical History: Denies: Hx HIV Past Surgical History: Reports: Hx Section - x4, Hx Tonsillectomy - Immunizations Immunizations up to date: Yes Hx Diphtheria, Pertussis, Tetanus Vaccination: Yes - 07/2012 Physical Exam - Vital signs Vitals: Temp Pulse Resp BP Pulse Ox 98.3 F 55 L 18 121/82 95 08/01/19 13:46 08/01/19 13:46 08/01/19 13:46 08/01/19 13:46 08/01/19 13:46 Course - Vital Signs Vital signs: Temp Pulse Resp BP Pulse Ox 98.3 F 55 L 18 121/82 95 08/01/19 13:46 08/01/19 13:46 08/01/19 13:46 08/01/19 13:46 08/01/19 13:46
[2019-08-01] MEDS ORDERED: PREDNISONE 20 MG TABLET PO ONE (14:28)
[2019-08-01] MEDS ORDERED: IPRATROPIUM/ALBUTEROL 0.5-2.5 MG/3 ML AMPUL NEB ONE (14:28)
[2019-08-01 14:29] LABS: APPEARANCE,URINE SLIGHTLY-CLOUDY; BILIRUBIN,URINE NEGATIVE (NEGATIVE); COLOR,URINE YELLOW; GLUCOSE, URINE NEGATIVE (NEGATIVE); KETONES,URINE NEGATIVE (NEGATIVE); LEUKOCYTE ESTERASE,URINE NEGATIVE (NEGATIVE); NITRITE,URINE NEGATIVE (NEGATIVE); PROTEIN,URINE NEGATIVE (NEGATIVE)
--- NOTE | 2019-08-01 14:32 | ER Document Report ---
ED GI/ - General Chief Complaint: Epigastric Pain Stated Complaint: NAUSEA/STOMACH PAIN Time Seen by Provider: 08/01/19 14:15 Mode of Arrival: Ambulatory Notes: Patient presents complaining of cough for the past 2 to 3 weeks. Patient states that the cough seems to be improving. Patient reports epigastric abdominal pain for the past 2 days. Patient reports nausea and vomiting x1 episode. Patient denies any diarrhea. Patient denies any fever or urinary symptoms. TRAVEL OUTSIDE OF THE [place] IN LAST 30 DAYS: No - HPI Patient complains to provider of: Abdominal pain, Vomiting Onset: Yesterday Timing/Duration: Persistent Quality of pain: Sharp Pain Level: 3 Location: Epigastric Menstrual period history: denies: Associated symptoms: Nausea, Vomiting. denies: Chest pain, Dysuria, Fever, Loss of appetite, Urinary hesitancy, Urinary frequency, Urinary urgency Exacerbated by: Denies Relieved by: Denies Similar symptoms previously: No Recently seen / treated by doctor: No - Related Data Allergies/Adverse Reactions: codeine [Codeine] Allergy (Severe, Verified 05/25/17 18:45) Milk Containing Products [Milk Products] Allergy (Severe, Verified 05/25/17 18:45) latex [Latex] Adverse Reaction (Severe, Verified 05/25/17 18:45) Past Medical History - General Information source: Patient - Social History Smoking Status: Never Smoker Chew tobacco use (# tins/day): No Frequency of alcohol use: None Drug Abuse: None Occupation: Foodservice Family History: Reviewed & Not Pertinent Patient has suicidal ideation: No Patient has homicidal ideation: No - Past Medical History Cardiac Medical History: Reports: Hx Hypertension - DURING Pulmonary Medical History: Reports: Hx Asthma, Hx Bronchitis, Hx Pneumonia Renal/ Medical History: Reports: Hx Ovarian Cysts Malignancy Medical History: Denies: Hx Breast Cancer, Hx Ovarian Cancer GI Medical History: Reports: Hx Gastroesophageal Reflux Disease Musculoskeletal Medical History: Denies Hx Fibromyalgia Infectious Medical History: Past Surgical History: Reports: Hx Section - x4, Hx Tonsillectomy - Immunizations Immunizations up to date: Yes Hx Diphtheria, Pertussis, Tetanus Vaccination: Yes - 07/2012 Review of Systems - Review of Systems Constitutional: No symptoms reported. denies: Fever EENT: No symptoms reported Cardiovascular: No symptoms reported. denies: Chest pain, Dizziness Respiratory: Cough, Wheezing. denies: Short of breath Gastrointestinal: Abdominal pain, Nausea, Vomiting. denies: Diarrhea Genitourinary: No symptoms reported. denies: Dysuria, Flank pain Female Genitourinary: No symptoms reported. denies: Musculoskeletal: No symptoms reported. denies: Back pain Skin: No symptoms reported Hematologic/Lymphatic: No symptoms reported Neurological/Psychological: No symptoms reported Physical Exam - Vital signs Vitals: Temp Pulse Resp BP Pulse Ox 98.3 F 55 L 18 121/82 95 08/01/19 13:46 08/01/19 13:46 08/01/19 13:46 08/01/19 13:46 08/01/19 13:46 - General General appearance: Appears well, Alert In distress: None - HEENT Head: Normocephalic, Atraumatic Eyes: Normal Conjunctiva: Normal Nasal: Normal Mouth/Lips: Normal Mucous membranes: Normal Neck: Normal, Supple. No: Lymphadenopathy - Respiratory Respiratory status: No respiratory distress Chest status: Nontender Breath sounds: Nonproductive cough, Wheezing Chest palpation: Normal - Cardiovascular Rhythm: Regular Heart sounds: S1 appreciated, S2 appreciated - Abdominal Inspection: Morbidly Obese Distension: No distension Bowel sounds: Normal Tenderness: Tender, Guarding Organomegaly: No organomegaly - Back Back: Normal, Nontender. No: CVA tenderness - Extremities General upper extremity: Normal inspection, Normal strength General lower extremity: Normal inspection, Normal strength - Neurological Neuro grossly intact: Yes Cognition: Normal Hemant Coma Scale Eye Opening: Spontaneous Hemant Coma Scale Verbal: Oriented Hemant Coma Scale Motor: Obeys Commands Hemant Coma Scale Total: 15 - Psychological Associated symptoms: Normal affect, Normal mood - Skin Skin Temperature: Warm Skin Moisture: Dry Skin Color: Normal Course - Re-evaluation Re-evalutation: 08/01/19 16:20 Patient's respirations even unlabored, patient nontoxic in appearance. Patient continues with scattered wheezing with cough only. Patient without any additional nausea or vomiting. Ultrasound reviewed, no concern for any biliary obstruction at this time. Will treat symptomatically and encourage outpatient follow-up with primary doctor for recheck. - Vital Signs Vital signs: Temp Pulse Resp BP Pulse Ox 98.3 F 55 L 18 121/82 95 08/01/19 13:46 08/01/19 13:46 08/01/19 13:46 08/01/19 13:46 08/01/19 13:46 - Laboratory Result Diagrams: 08/01/19 14:00 08/01/19 14:00 Laboratory results interpreted by me: 08/01/19 08/01/19 08/01/19 14:00 14:00 14:00 WBC 3.6 L Hgb 11.8 L Hct 35.1 L RDW 15.1 H Lymph % (Auto) 57.6 H Absolute Neuts (auto) 1.2 L Seg Neutrophils % 33.0 L BUN 6 L Urine Urobilinogen 2.0 H Labs- Entire Visit 08/01/19 08/01/19 08/01/19 14:00 14:00 14:00 WBC 3.6 L RBC 4.19 Hgb 11.8 L Hct 35.1 L MCV 84 MCH 28.1 MCHC 33.5 RDW 15.1 H Plt Count 151 Lymph % (Auto) 57.6 H [place] % (Auto) 8.5 Eos % (Auto) 0.7 Baso % (Auto) 0.2 Absolute Neuts (auto) 1.2 L Absolute Lymphs (auto) 2.1 Absolute Monos (auto) 0.3 Absolute Eos (auto) 0.0 Absolute Basos (auto) 0.0 Seg Neutrophils % 33.0 L Sodium 139.5 Potassium 4.4 Chloride 107 Carbon Dioxide 28 Anion Gap 5 BUN 6 L Creatinine 0.52 Est GFR ( Amer) > 60 Est GFR (MDRD) Non-Af > 60 Glucose 85 Calcium 8.5 Total Bilirubin 0.4 Direct Bilirubin 0.0 Neonat Total Bilirubin Not Reportable Neonat Direct Bilirubin Not Reportable Neonat Indirect Bili Not Reportable AST 24 ALT 17 Alkaline Phosphatase 58 Total Protein 6.6 Albumin 3.6 Lipase 49.3 Serum HCG, Qual NEGATIVE Urine Color Urine Appearance Urine pH Ur Specific [place] Urine Protein Urine Glucose (UA) Urine Ketones Urine Blood Urine Nitrite Urine Bilirubin Urine Urobilinogen Ur Leukocyte Esterase Urine WBC (Auto) Urine RBC (Auto) Squamous Epi Cells Auto Urine Mucus (Auto) Urine Ascorbic Acid 08/01/19 14:00 WBC RBC Hgb Hct MCV MCH MCHC RDW Plt Count Lymph % (Auto) [place] % (Auto) Eos % (Auto) Baso % (Auto) Absolute Neuts (auto) Absolute Lymphs (auto) Absolute Monos (auto) Absolute Eos (auto) Absolute Basos (auto) Seg Neutrophils % Sodium Potassium Chloride Carbon Dioxide Anion Gap BUN Creatinine Est GFR ( Amer) Est GFR (MDRD) Non-Af Glucose Calcium Total Bilirubin Direct Bilirubin Neonat Total Bilirubin Neonat Direct Bilirubin Neonat Indirect Bili AST ALT Alkaline Phosphatase Total Protein Albumin Lipase Serum HCG, Qual Urine Color YELLOW Urine Appearance SLIGHTLY-CLOUDY Urine pH 7.0 Ur Specific [place] 1.020 Urine Protein NEGATIVE Urine Glucose (UA) NEGATIVE Urine Ketones NEGATIVE Urine Blood NEGATIVE Urine Nitrite NEGATIVE Urine Bilirubin NEGATIVE Urine Urobilinogen 2.0 H Ur Leukocyte Esterase NEGATIVE Urine WBC (Auto) 4 Urine RBC (Auto) 2 Squamous Epi Cells Auto 5 Urine Mucus (Auto) FEW Urine Ascorbic Acid NEGATIVE - Diagnostic Test Radiology reviewed: Reports reviewed Discharge - Discharge Clinical Impression: Wheezing, Bronchitis Nausea & vomiting Qualifiers: Vomiting type: unspecified Vomiting Intractability: non-intractable Qualified Code(s): R11.2 - Nausea with vomiting, unspecified Abdominal pain Qualifiers: Abdominal location: epigastric Qualified Code(s): R10.13 - Epigastric pain Condition: Stable Disposition: HOME, SELF-CARE Instructions: Antinausea Medication ([facility]), Vomiting ([facility]), Abdominal Pain ([facility]) Additional Instructions: Return immediately for any new or worsening symptoms Followup with your primary care provider, call tomorrow to make a followup appointment BRONCHITIS: You have acute bronchitis. This disease is an infection or inflammation of the air passageways in your lungs. Symptoms usually include cough, low grade fever, shortness of breath, and wheezing. The cough usually persists for a couple of weeks. Most cases of bronchitis get better without antibiotics. We prescribe antibiotics when we believe bacteria are damaging your airways, or if there's high risk the bronchitis will worsen into pneumonia. Increase your fluid intake. A cool mist humidifier may make your lungs more comfortable. An expectorant (cough medicine that loosens phlegm) can help. If you smoke, STOP!!! Recovery from bronchitis can be somewhat slow, but you should see improvement within a day or two. Repeated episodes of bronchitis may result in lung damage -- for example, chronic bronchitis, recurrent pneumonias, or emphysema. Call the doctor if you develop increasing fever, shortness of breath, chest pain, bloody sputum, or otherwise worsen. If you have not improved at all after several days, contact the physician. BRONCHITIS WITH BRONCHOSPASM (WHEEZING): You have bronchitis with bronchospasm (wheezing). Sometimes people develop wheezing with a chest cold. This occurs either because of an underlying tendency toward asthma or because the virus itself irritates the bronchial tubes. This irritation causes cough, shortness of breath, and wheezing. Emergency treatment of bronchospasm may include adrenaline shots or bronchodilator aerosol. You may feel lightheaded and have a rapid pulse for an hour or two. Rest and get plenty of fluids. At home, we'll treat you with a bronchodilator inhaler. Corticosteroids may be required for some patients. Until you recover, avoid chemical fumes, dusts, pollens, and exercising in very cold or dry air. If you smoke, stop now! Most cases of bronchitis get better without antibiotics. We prescribe antibiotics when we believe bacteria are damaging your airways, or if there's high risk the bronchitis will worsen into pneumonia. Increase your fluid intake. A cool mist humidifier may make your lungs more comfortable. An expectorant (cough medicine that loosens phlegm) can help. Repeated episodes of bronchitis and bronchospasm may result in lung damage -- for example, chronic bronchitis, recurrent pneumonias, or emphysema. If you develop a fever, increased wheezing, chest pain, or severe shortness of breath, you should contact the doctor immediately. INHALED BRONCHODILATORS: You have received a treatment of and/or prescription for an inhaled bronchodilator -- a medication which stimulates the airways in the lung to dilate. This improves the flow of air in asthma, bronchitis, and emphysema. These medicines have some similarity to adrenaline, and can cause similar side effects: shakiness, racing heart, and a sense of nervousness. These side effects decrease with time. Contact your doctor if these side effects are severe. Do not over-use the medicine. Too-frequent use of the inhaler may make it ineffective. Call your doctor if the inhaler is not controlling your symptoms at the prescribed doses. STEROID MEDICATION: You have been given an injection of or oral medicine of the alisia isone/steroid class. This medication is used to control inflammation or allergy. Narendra t is usually only given for a short period of time, until the acute process subsides. There are usually no side effects from short-term use of cortisone-like medications. Some persons feel an increased sense of well-being and are not sleepy at bedtime. Long-term use of cortisone medications is best avoided, unless required for a severe condition. If your condition does not remit, or relapses after the course of corticosteroid medication, you should consult your physician. USE OF ACETAMINOPHEN (Tylenol): Acetaminophen may be taken for pain relief or fever control. It's much safer than aspirin, offering a wider range of "safe" dosages. It is safe during . Some brand names are Tylenol, Panadol, Datril, Anacin 3, Tempra, and Liquiprin. Acetaminophen can be repeated every four hours. The following are maximum recommended dosages: >89 pounds or adults 650 mg to 900 mg Acetaminophen can be repeated every four hours. Maximum dose not to exceed 4000 mg a day. FOLLOW-UP CARE: If you have been referred to a physician for follow-up care, call the physicians office for an appointment as you were instructed or within the next two days. If you experience worsening or a significant change in your symptoms, notify the physician immediately or return to the Emergency Department at any time for re-evaluation. Prescriptions: Prednisone [Deltasone 10 mg Tablet] 10 mg PO ASDIR #21 tablet Inhaler,Assist Device,Accesory [Optichamber] 1 each MC Q4 PRN #1 each PRN Reason: Famotidine [Pepcid 20 mg Tablet] 20 mg PO BID #12 tablet Albuterol Sulfate [Proair Hfa Inhalation Aerosol 8.5 gm Mdi] 2 puff IH Q4 PRN #1 mdi PRN Reason: Ondansetron [Zofran Odt 4 mg Tablet] 1 tab PO Q6H #15 tab.rapdis Forms: Return to Work Referrals: [facility] [Provider Group] - Follow up as needed
[2019-08-01 14:34] LABS: ABSOLUTE LYMPHOCYTES (AUTO) 2.1 10^3/uL (0.5-4.7); ABSOLUTE MONOCYTES (AUTO) 0.3 10^3/uL (0.1-1.4); ABSOLUTE NEUT (AUTO) 1.2 10^3/uL (1.7-8.2); BASOPHILS % (AUTO) 0.2 % (0-2); EOSINOPHILS % (AUTO) 0.7 % (0-6); HEMATOCRIT 35.1 % (36.0-47.0); HEMOGLOBIN 11.8 g/dL (12.0-15.5); LYMPHOCYTES % (AUTO) 57.6 % (13-45); MEAN CORPUSCULAR HEMOGLOBIN 28.1 pg (27.0-33.4); MEAN CORPUSCULAR HGB CONC 33.5 g/dL (32.0-36.0); MEAN CORPUSCULAR VOLUME 84 fl (80-97); MONOCYTES % (AUTO) 8.5 % (3-13); PLATELET COUNT 151 10^3/uL (150-450); RED BLOOD COUNT 4.19 10^6/uL (3.72-5.28); RED CELL DISTRIBUTION WIDTH 15.1 % (11.5-14.0); TOTAL CELLS COUNTED % (AUTO) 100 %; WHITE BLOOD COUNT 3.6 10^3/uL (4.0-10.5)
[2019-08-01 14:49] LABS: ALBUMIN 3.6 g/dL (3.5-5.0); ALKALINE PHOSPHATASE 58 U/L (38-126); ASPARTATE AMINO TRANSFERASE 24 U/L (14-36); BILIRUBIN,TOTAL 0.4 mg/dL (0.2-1.3); BLOOD UREA NITROGEN 6 mg/dL (7-20); CALCIUM 8.5 mg/dL (8.4-10.2); CARBON DIOXIDE 28 mmol/L (22-30); CHLORIDE 107 mmol/L (98-107); GLUCOSE 85 mg/dL (75-110); POTASSIUM 4.4 mmol/L (3.6-5.0); TOTAL PROTEIN 6.6 g/dL (6.3-8.2)
--- NOTE | 2019-08-01 14:52 | RADIOLOGY REPORT (SQ) ---
EXAM DESCRIPTION: CHEST 2 VIEWS COMPLETED DATE/TIME: 08/01/2019 2:42 pm REASON FOR STUDY: cough COMPARISON: None. EXAM PARAMETERS: NUMBER OF VIEWS: two views TECHNIQUE: Digital Frontal and Lateral radiographic views of the chest acquired. RADIATION DOSE: NA LIMITATIONS: none FINDINGS: LUNGS AND PLEURA: No opacities, masses or pneumothorax. No pleural effusion. MEDIASTINUM AND HILAR STRUCTURES: No masses or contour abnormalities. HEART AND VASCULAR STRUCTURES: Heart normal size. No evidence for failure. BONES: No acute findings. HARDWARE: None in the chest. OTHER: No other significant finding. IMPRESSION: NO ACUTE RADIOGRAPHIC FINDING IN THE CHEST. TECHNICAL DOCUMENTATION: JOB ID: [id number] 2010 [employer]- All Rights Reserved Reading location - IP/workstation name: [email or web address]
[2019-08-01 14:56] LABS: ANION GAP 5 (5-19)
--- NOTE | 2019-08-01 15:37 | RADIOLOGY REPORT (SQ) ---
EXAM DESCRIPTION: U/S ABDOMEN LIMITED W/O DOP COMPLETED DATE/TIME: 08/01/2019 3:05 pm REASON FOR STUDY: epigastric ruq pain, nausea COMPARISON: None. TECHNIQUE: Dynamic and static grayscale images acquired of the abdomen and recorded on PACS. Additio carlos enrique selected color Doppler and spectral images recorded. LIMITATIONS: None. FINDINGS: PANCREAS: No masses. Visualized pancreatic duct normal caliber. LIVER: No masses. Echotexture normal. LIVER VASCULATURE: Normal directional flow of the main portal vein and hepatic veins. GALLBLADDER: No stones. Normal wall thickness. No pericholecystic fluid. ULTRASOUND-DETECTED MALDONADO'S SIGN: Negative. INTRAHEPATIC DUCTS AND COMMON DUCT: CBD and intrahepatic ducts normal caliber. No filling defects. INFERIOR VENA CAVA: Normal flow. AORTA: No aneurysm. RIGHT KIDNEY: Normal size. Normal echogenicity. No solid or suspicious masses. No hydronephrosis. No calcifications. PERITONEAL AND RIGHT PLEURAL SPACE: No ascites or effusions. OTHER: No other significant findings. IMPRESSION: NORMAL RIGHT UPPER QUADRANT ULTRASOUND. TECHNICAL DOCUMENTATION: JOB ID: [id number] 2010 [employer]- All Rights Reserved Reading location - IP/workstation name: [email or web address]
[2019-08-01] MEDS ORDERED: MAG HYDROX/AL HYDROX/SIMETH SUSP 30 ML UDCUP PO ONE (15:48)
[2019-08-01] MEDS ORDERED: LIDOCAINE 2% VISCOUS SOLN 15 ML UDCUP PO ONE (15:48)
[2019-08-01 16:48] VITALS: BP 128/78
== END 2019-08-01 16:47 | disposition home or self-care (01) ==
LOC: ER 13:43
DX: J45.909 Unspecified asthma, uncomplicated (principal); R11.2 Nausea with vomiting, unspecified; R10.13 Epigastric pain; R10.819 Abdominal tenderness, unspecified site; R05 Cough; Z87.01 Personal history of pneumonia (recurrent); Z88.6 Allergy status to analgesic agent; Z88.5 Allergy status to narcotic agent; Z91.011 Allergy to milk products
CPT/HCPCS: 94640; 99284; 36415; 83690; 84703; 85025; 80053; 81001; 71046; 76705; S0119; J3490; J7512; J7620

== ENCOUNTER 2019-12-27 21:29 | Emergency (ER) | payer BC ==
--- NOTE | 2019-12-27 22:27 | RADIOLOGY REPORT (SQ) ---
EXAM DESCRIPTION: XR KNEE 1-2 VIEWS COMPLETED DATE/TME: 12/27/2019 00:00 CLINICAL HISTORY: 34 years, Female, bone pain COMPARISON: None. NUMBER OF VIEWS: 2 TECHNIQUE: 2 views right knee LIMITATIONS: None. FINDINGS: Negative for fracture or dislocation. Soft tissues are unremarkable. IMPRESSION: Negative exam copyright 2011 [employer]- All Rights Reserved
--- NOTE | 2019-12-27 23:01 | ER Document Report ---
Doctor's Note Notes: 12/27/19 23:00 Patient has been listed as being "in room" for over an hour when patient has never been assigned to a room. I have changed the patient's status to triage complete.
--- NOTE | 2019-12-28 01:12 | ER Document Report ---
ED Extremity Problem, Lower - General Chief Complaint: Knee Injury Stated Complaint: FALL,RIGHT KNEE PAIN Mode of Arrival: Ambulatory Information source: Patient Notes: This 34-year-old woman presents to the emergency department with a history of a fall at a local [employer] today. She states that she was at the supermarket and slipped in the water falling onto her right knee. She has pain in the right lower extremity, she was able to stand and walk. She complains of sharp pains in the right knee. She denies a prior history of right knee injury. TRAVEL OUTSIDE OF THE [place] IN LAST 30 DAYS: No - Related Data Allergies/Adverse Reactions: codeine [Codeine] Allergy (Severe, Verified 05/25/17 18:45) Milk Containing Products [Milk Products] Allergy (Severe, Verified 05/25/17 18:45) latex [Latex] Adverse Reaction (Severe, Verified 05/25/17 18:45) Home Medications: vitamins Past Medical History - General Information source: Patient - Social History Smoking Status: Never Smoker Frequency of alcohol use: None Drug Abuse: None Family History: Reviewed & Not Pertinent Patient has homicidal ideation: No - Past Medical History Cardiac Medical History: Reports: Hx Hypertension - DURING Denies: Hx Congestive Heart Failure, Hx Heart Attack, Hx Pulmonary Embolism, Hx Heart Murmur Pulmonary Medical History: Reports: Hx Asthma, Hx Bronchitis, Hx Pneumonia Denies: Hx COPD, Hx Sleep Apnea, Hx Tuberculosis Neurological Medical History: Denies: Hx Cerebrovascular Accident, Hx Seizures Renal/ Medical History: Reports: Hx Ovarian Cysts. Denies: Hx Kidney Stones, Hx Peritoneal Dialysis, Hx Pelvic Inflammatory Disease Malignancy Medical History: Denies: Hx Breast Cancer, Hx Ovarian Cancer GI Medical History: Reports: Hx Gastroesophageal Reflux Disease. Denies: Hx Hiatal Hernia. Comment Only: Hx Ulcer - UNKNOWN Musculoskeletal Medical History: Denies Hx Fibromyalgia Traumatic Medical History: Denies: Hx Fractures Infectious Medical History: Denies: Hx HIV Past Surgical History: Reports: Hx Section - x4, Hx Tonsillectomy - Immunizations Immunizations up to date: Yes Hx Diphtheria, Pertussis, Tetanus Vaccination: Yes - 07/2012 Review of Systems - Review of Systems Notes: Constitutional: Negative for fever. HENT: Negative for sore throat. Eyes: Negative for visual changes. Cardiovascular: Negative for chest pain. Respiratory: Negative for shortness of breath. Gastrointestinal: Negative for abdominal pain, vomiting or diarrhea. Genitourinary: Negative for dysuria. Musculoskeletal: See HPI Skin: Negative for rash. Neurological: Negative for headaches, weakness or numbness. 10 point ROS negative except as marked above and in HPI. Physical Exam - Vital signs Vitals: Temp Pulse Resp BP Pulse Ox 98.4 F 85 20 124/77 100 12/27/19 21:36 12/27/19 21:36 12/27/19 21:36 12/27/19 21:36 12/27/19 21:36 - Notes Notes: PHYSICAL EXAMINATION: Physical Exam: General: Well-nourished well-developed 34-year-old woman in no acute distress HEENT: NC/AT, pupils equal round and reactive to light, MM moist,nares clear, oropharynx clear, airway patent Neck: supple, no adenopathy, no masses. Good range of motion Lungs: clear, no wheezing, no rales no rhonchi CVS: Regular rate and rhythm no murmur gallop or rub Abdomen: Soft, active, nontender, no masses, no hepatosplenomegaly Ext: Right knee with mild swelling, no crepitus, no obvious deformity. Neuro: Alert and responsive, moving all 4 extremities on command, cranial nerves intact, no focal findings Skin: Intact no open lesions, no rash PSYCH: Normal mood, normal affect. Course - Re-evaluation Re-evalutation: 12/28/19 01:10 Contusion to the right knee, x-ray of the right knee is negative, I explained to the patient that she will have some soreness and pain in the knee. She is given ibuprofen in the emergency department, prescription for anti-inflammatory pain medicines to be taken at home. I have asked her to ice the knee and to follow-up with your primary care doctor as needed. Patient acknowledges understanding of this plan and will follow-up as needed - Vital Signs Vital signs: Temp Pulse Resp BP Pulse Ox 98.4 F 76 16 136/80 H 100 12/27/19 21:36 12/28/19 01:35 12/28/19 01:35 12/28/19 01:35 12/28/19 01:35 - Diagnostic Test Radiology reviewed: Image reviewed, Reports reviewed Radiology results interpreted by me: 12/28/19 01:11 X-ray right knee: No fracture, no dislocation. Discharge - Discharge Clinical Impression: Contusion of right knee Qualifiers: Encounter type: initial encounter Qualified Code(s): S80.01XA - Contusion of right knee, initial encounter Fall Qualifiers: Encounter type: initial encounter Qualified Code(s): W19.XXXA - Unspecified fall, initial encounter Condition: Good Disposition: HOME, SELF-CARE Instructions: Contusion ([facility]), Ice & Elevation ([facility]) Additional Instructions: You were seen in the emergency department tonmanjit with a history of injury secondary to a fall. There was no fracture seen on the x-ray, you likely sustained a contusion which is a soft tissue injury. The use of ibuprofen or anti-inflammatory medications and ice/cold pack to the area of pain and swelling should help reduce your symptoms. If you continue to have difficulties, please follow-up with your primary care doctor. HOME CARE INSTRUCTIONS & INFORMATION: Thank you for choosing us for your medical needs. We hope you're satisfied with the care you received. After you leave, you must properly care for your problem and, at the same time, observe its progress. Any condition can change. Some illnesses can change rapidly over hours or days. If your condition worsens, return to the Emergency Department or see your physician promptly. ABOUT YOUR X-RAYS AND EKG'S: If you had an EKG or X-rays taken, they have been read by the Emergency Physician. The X-rays and EKG's will also be read by a Radiologist or Die Designer within 24 hours. If discrepancies are noted, you will be notified by telephone. Please be certain the ED has a correct telephone number & address where you can be reached. Also, realize that some fractures or abnormalities do not show up on initial X-rays. If your symptoms continue, see your physician. ABOUT YOUR LABORATORY TEST: If you had laboratory tests, the results have been reviewed by the Emergency Physician. Some test results (for example cultures) may not be available for several days. You will be contacted if any test result shows you need additional treatment. Please be certain the ED has a correct telephone number and address where you can be reached. ABOUT YOUR MEDICATIONS: You will receive instructions on how to take your medicine on the prescription label you receive. Additional information may be provided by the Pharmacy. If you have questions afterwards, call the ED for clarification or further instructions. Some prescribed medications may cause drowsiness. Do not perform tasks such as driving a car or operating machinery without consulting your Pharmacist. If you feel you need a refill of pain medication, your condition will need re-evaluation. Please do not call for a refill of any medication. ABOUT YOUR SIGNATURE: Signature of this document acknowledges to followin. Understanding that you received emergency treatment and that you may be released before al medical problems are known or treated. Please be certain the ED has a correct phone number & address where you can be reached. 2. Acknowledgement that you will arrange for follow-up care as recommended. 3. Authorization for the Emergency Physician to provide information to your follow-up Physician in order to maximize your care. AT ANY TIME, IF YOUR SYMPTOMS CHANGE SIGNIFICANTLY OR WORSEN OR YOU DEVELOP NEW SYMPTOMS, RETURN TO THE EMERGENCY DEPARTMENT IMMEDIATELY FOR RE-EVALUATION. OUR GOAL IS TO PROVIDE EXCELLENT MEDICAL CARE! WE HOPE THAT WE HAVE MET YOUR EXPECTATIONS DURING YOUR EMERGENCY DEPARTMENT VISIT AND THAT YOU FEEL YOU HAVE RECEIVED EXCELLENT CARE! Prescriptions: Ibuprofen [Motrin 800 mg Tablet] 800 mg PO Q8H PRN #30 tab PRN Reason: Forms: Return to Work
[2019-12-28] MEDS ORDERED: IBUPROFEN 800 MG TABLET PO ONE (01:15)
[2019-12-28 01:36] VITALS: BP 136/80
== END 2019-12-28 01:35 | disposition home or self-care (01) ==
LOC: ER 21:29
DX: S80.01XA Contusion of right knee, initial encounter (principal); W01.0XXA Fall on same level from slipping, tripping and stumbling without subsequent striking against object, initial encounter; Y92.512 Supermarket, store or market as the place of occurrence of the external cause; Z88.6 Allergy status to analgesic agent; Z91.040 Latex allergy status
CPT/HCPCS: 99283

== ENCOUNTER 2019-12-29 17:23 | Emergency (ER) | payer BC ==
--- NOTE | 2019-12-29 18:32 | ER Document Report ---
ED General - General Stated Complaint: LEG SWELLING Notes: Patient is a 34-year-old Afro-[place]ub[place] female with no significant past medical history presents here to the emergency department for reevaluation of fall. Patient reports on Friday of this week she slipped and fell on some water and a local grocery store. She reports that she came here, was evaluated and x-rays are normal at that time. She states since that time she has had some ongoing discomfort in the ankle and foot. She reports tenderness to the medial ankle and soreness to the muscles of the lateral leg with dorsiflexion plantarflexion of the foot. Denies any numbness tingling or weakness. TRAVEL OUTSIDE OF THE [place] IN LAST 30 DAYS: No - Related Data Allergies/Adverse Reactions: codeine [Codeine] Allergy (Severe, Verified 05/25/17 18:45) Milk Containing Products [Milk Products] Allergy (Severe, Verified 05/25/17 18:45) latex [Latex] Adverse Reaction (Severe, Verified 05/25/17 18:45) Past Medical History - Social History Smoking Status: Unknown if Ever Smoked Family History: Reviewed & Not Pertinent - Past Medical History Cardiac Medical History: Reports: Hx Hypertension - DURING Denies: Hx Congestive Heart Failure, Hx Heart Attack, Hx Pulmonary Embolism, Hx Heart Murmur Pulmonary Medical History: Reports: Hx Asthma, Hx Bronchitis, Hx Pneumonia Denies: Hx COPD, Hx Sleep Apnea, Hx Tuberculosis Neurological Medical History: Denies: Hx Cerebrovascular Accident, Hx Seizures Renal/ Medical History: Reports: Hx Ovarian Cysts. Denies: Hx Kidney Stones, Hx Peritoneal Dialysis, Hx Pelvic Inflammatory Disease Malignancy Medical History: Denies: Hx Breast Cancer, Hx Ovarian Cancer GI Medical History: Reports: Hx Gastroesophageal Reflux Disease. Denies: Hx Hiatal Hernia. Comment Only: Hx Ulcer - UNKNOWN Musculoskeletal Medical History: Denies Hx Fibromyalgia Traumatic Medical History: Denies: Hx Fractures Infectious Medical History: Denies: Hx HIV Past Surgical History: Reports: Hx Section - x4, Hx Tonsillectomy - Immunizations Immunizations up to date: Yes Hx Diphtheria, Pertussis, Tetanus Vaccination: Yes - 07/2012 Review of Systems - Review of Systems Constitutional: denies: Fever EENT: denies: Throat pain Cardiovascular: denies: Chest pain Respiratory: denies: Short of breath Gastrointestinal: denies: Abdominal pain Genitourinary: denies: Pain Female Genitourinary: denies: Vaginal discharge Musculoskeletal: Joint pain Skin: denies: Change in color Hematologic/Lymphatic: denies: Easy bruising Neurological/Psychological: denies: Headaches Physical Exam - Vital signs Vitals: Temp Pulse Resp BP Pulse Ox 99.5 F 98 16 141/88 H 98 12/29/19 17:27 12/29/19 17:27 12/29/19 17:27 12/29/19 17:27 12/29/19 17:27 - General General appearance: Appears well, Alert In distress: None - Respiratory Respiratory status: No respiratory distress Chest status: Nontender Breath sounds: Normal Chest palpation: Normal - Cardiovascular Rhythm: Regular Heart sounds: Normal auscultation - Extremities Knee: Normal Calf: Normal, Nontender, Other - Normal Alex squeeze test Ankle: Other - Slight tenderness to the medial right ankle. No deformity, step- off or crepitus. Full passive range of motion of the right ankle. 2+ DP/PT on the right. Foot: Normal, Nontender, Other - Full range of motion. Good capillary refill distally - Neurological Neuro grossly intact: Yes Cognition: Normal Orientation: AAOx4 [place] Coma Scale Eye Opening: Spontaneous Hemant Coma Scale Verbal: Oriented Hemant Coma Scale Motor: Obeys Commands [place] Coma Scale Total: 15 Speech: Normal Motor strength normal: LUE, RUE, LLE, RLE Sensory: Normal - Psychological Associated symptoms: Normal affect, Normal mood - Skin Skin Temperature: Warm Skin Moisture: Dry Skin Color: Normal Course - Re-evaluation Re-evalutation: 12/29/19 20:11 X-ray showing evidence of ankle effusion, some joint swelling and a calcaneal spur. Feel the spur is incidental to these other findings given the patient's recent injury. We do not have a walking boot here to the patient be placed in an Jose wrap with Velcro stirrup splint and crutches. We discussed rice. She has ibuprofen from previous visit. Counseled her regarding the importance of outpatient follow-up and advised she return here or any ER immediately with any new, persistent or worsening symptoms. She verbalized understood and agreed. Will be referred to Ortho. - Vital Signs Vital signs: Temp Pulse Resp BP Pulse Ox 99.5 F 98 16 141/88 H 98 12/29/19 17:27 12/29/19 17:27 12/29/19 17:27 12/29/19 17:27 12/29/19 17:27 Discharge - Discharge Clinical Impression: Ankle sprain Qualifiers: Encounter type: initial encounter Involved ligament of ankle: unspecified ligament Laterality: unspecified laterality Qualified Code(s): S93.409A - Sprain of unspecified ligament of unspecified ankle, initial encounter Calcaneal spur Qualifiers: Laterality: unspecified laterality Qualified Code(s): M77.30 - Calcaneal spur, unspecified foot Condition: Stable Disposition: HOME, SELF-CARE Instructions: Use of Crutches ([facility]), Ice & Elevation ([facility]) Additional Instructions: Follow-up with your regular doctor in 2 to 3 days for reevaluation. Return here or any ER immediately with any new, persistent or worsening symptoms. Please see orthopedics if not improving. Referrals: JOSEFA POSEY MD [ACTIVE STAFF] - Follow up as needed
--- NOTE | 2019-12-29 19:10 | RADIOLOGY REPORT (SQ) ---
EXAM DESCRIPTION: ANKLE RIGHT COMPLETE; FOOT RIGHT COMPLETE IMAGES COMPLETED DATE/TIME: 12/29/2019 5:48 pm REASON FOR STUDY: pain s/p fall COMPARISON: None. NUMBER OF VIEWS: Six views. TECHNIQUE: AP, lateral, and oblique radiographic images acquired of the right foot and ankle. LIMITATIONS: None. FINDINGS: MINERALIZATION: Normal. BONES: There is no acute fracture or cortical disruption. Small plantar calcaneal spur. Mild osteoa rthritis at the midfoot. JOINTS: Normal ankle mortise alignment. Small ankle joint effusion. SOFT TISSUES: Soft tissue swelling. OTHER: No other significant finding. IMPRESSION: 1. Soft tissue swelling and small ankle joint effusion. No acute fracture or dislocation. 2. 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 3. Small plantar calcaneal spur which can be seen with plantar fasciitis. TECHNICAL DOCUMENTATION: JOB ID: [id number] 2010 [employer]- All Rights Reserved Reading location - IP/workstation name: [email or web address]
--- NOTE | 2019-12-29 19:10 | RADIOLOGY REPORT (SQ) ---
EXAM DESCRIPTION: ANKLE RIGHT COMPLETE; FOOT RIGHT COMPLETE IMAGES COMPLETED DATE/TIME: 12/29/2019 5:48 pm REASON FOR STUDY: pain s/p fall COMPARISON: None. NUMBER OF VIEWS: Six views. TECHNIQUE: AP, lateral, and oblique radiographic images acquired of the right foot and ankle. LIMITATIONS: None. FINDINGS: MINERALIZATION: Normal. BONES: There is no acute fracture or cortical disruption. Small plantar calcaneal spur. Mild osteoa rthritis at the midfoot. JOINTS: Normal ankle mortise alignment. Small ankle joint effusion. SOFT TISSUES: Soft tissue swelling. OTHER: No other significant finding. IMPRESSION: 1. Soft tissue swelling and small ankle joint effusion. No acute fracture or dislocation. 2. 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 3. Small plantar calcaneal spur which can be seen with plantar fasciitis. TECHNICAL DOCUMENTATION: JOB ID: [id number] 2010 [employer]- All Rights Reserved Reading location - IP/workstation name: [email or web address]
[2019-12-29 21:17] VITALS: BP 140/85
== END 2019-12-29 20:54 | disposition home or self-care (01) ==
LOC: ER 17:23
DX: S93.409A Sprain of unspecified ligament of unspecified ankle, initial encounter (principal); W01.0XXA Fall on same level from slipping, tripping and stumbling without subsequent striking against object, initial encounter; Y92.512 Supermarket, store or market as the place of occurrence of the external cause; M19.071 Primary osteoarthritis, right ankle and foot; M77.31 Calcaneal spur, right foot; J45.909 Unspecified asthma, uncomplicated; Z88.6 Allergy status to analgesic agent; Z88.5 Allergy status to narcotic agent; Z91.011 Allergy to milk products
CPT/HCPCS: 99283